=== PATIENT | male | born 1980 | race Caucasian/White ===

== ENCOUNTER 2022-12-25 13:51 | Emergency (ER) | payer OTHER ==
[2022-12-25] MEDS ORDERED: Morphine 4 MG/ML VIAL ONE (14:56)
[2022-12-25] MEDS ORDERED: methylPREDNISolone Sod Succ/PF 125 MG/2 ML VIAL ONE (14:57)
[2022-12-25] MEDS ORDERED: Ondansetron PF 4 MG/2 ML Vial ONE (14:57)
== END 2022-12-25 17:26 | disposition home or self-care (01) ==
LOC: CSHERS 13:51
DX: S39.012A Strain of muscle, fascia and tendon of lower back, initial encounter (principal); W01.0XXA Fall on same level from slipping, tripping and stumbling without subsequent striking against object, initial encounter
CPT/HCPCS: 72148; 96374; 96375; J2270; J2405; J2930